=== PATIENT | female | born 1980 | race Two or more races ===

== ENCOUNTER 2024-05-17 21:27 | Emergency (ER) | payer SELFPAY ==
[~2024-05-17] VITALS: Ht 147.3 cm; Wt 90.9 kg
[~2024-05-17 21:27] MED LIST: PV W1TAB7 PO
[2024-05-17 22:01] VITALS: TEMP 98.2
[2024-05-18] MEDS: ERYTHROMYCIN 0.5% 3.5 GM TUBE OPHTHALMIC OINTMENT OS ONE (03:48)
[2024-05-18] MEDS: ACETAMINOPHEN/CODEINE 300-30 MG TABLET PO ONE (03:49)
[2024-05-18] MEDS ORDERED: IBUP-1554 PO (03:52)
[2024-05-18] MEDS ORDERED: ACET-2080 PO (03:52)
[2024-05-18 04:08] VITALS: BP 125/69; PULSE 79; RESP 16; O2SAT 100
== END 2024-05-18 04:10 | disposition home or self-care (01) ==
LOC: EMS 21:27
DX: S05.02XA Injury of conjunctiva and corneal abrasion without foreign body, left eye, initial encounter (principal); H10.9 Unspecified conjunctivitis; Z98.890 Other specified postprocedural states; X58.XXXA Exposure to other specified factors, initial encounter; Y93.89 Activity, other specified; Y92.89 Other specified places as the place of occurrence of the external cause; Y99.8 Other external cause status
CPT/HCPCS: 99283